=== PATIENT | male | born 1980 | race Caucasian/White ===

== ENCOUNTER 2021-10-06 15:35 | Emergency (ER) | payer BC ==
[2021-10-06 16:12] LABS: HEMOGLOBIN 16.4 gm/dl (14.0-17.5); RED BLOOD COUNT 5.3 M/UL (4.20-5.50); WHITE BLOOD COUNT 7.4 K/UL (4.5-11.0)
[2021-10-06 17:18] LABS: BUN/CREATININE RATIO 10 (0-10)
[2021-10-06] MEDS ORDERED: TOPROL XL25 MG PO (18:41)
== END 2021-10-06 19:05 | disposition home or self-care (01) ==
LOC: ER1 15:35
PROVIDERS: Preventive Medicine Occupational Medicine
DX: R00.2 Palpitations (principal); I10 Essential (primary) hypertension; Z20.822 Contact with and (suspected) exposure to COVID-19
CPT/HCPCS: 0240U; 71045; 80053; 80307; 81001; 82550; 82553; 83690; 84439; 84443; 84484; 85025; 85652; 86140; 93005; 96374; 99285; J2060